=== PATIENT | female | born 1945 | race African-American/Black ===

== ENCOUNTER 2019-05-08 09:06 | Inpatient (IN) | payer OTHER ==
[~2019-05-08] VITALS: Ht 160 cm; Wt 77.1 kg
[2019-05-08] MEDS ORDERED: ALBUTEROL (0.083%) 2.5MG/3ML NEB HHN STA (09:21)
[2019-05-08] MEDS ORDERED: MORPHINE SULFATE 4 MG/ML CPJ (NOT FOR IM USE) IV ONE (10:30)
[2019-05-08] MEDS ORDERED: LEVOFLOXACIN 250MG TABLET PO ONE (10:45)
[2019-05-08 11:06] LABS: HEMOGLOBIN. 11.2 g/dL (12.0-16.0); MEAN CORPUSCULAR HEMOGLOBIN 30.9 pg (28.0-32.0); MEAN CORPUSCULAR VOLUME 88.5 fL (81.0-99.0); PLATELET 200 x1000/uL (130-400); RED BLOOD CELL COUNT 3.62 mill/uL (4.2-5.4); RED CELL DISTRIBUTION WIDTH 14.7 % (11.6-14.6)
[2019-05-08 11:14] LABS: CHLORIDE 103 mEq/L (98-107)
[2019-05-08 11:32] LABS: PLATELET ESTIMATE NORMAL
[2019-05-08] MEDS ORDERED: TRAMADOL 50MG TABLET PO PRN (14:45)
[2019-05-08] MEDS ORDERED: MORPHINE SULFATE 2 MG/ML CPJ (NOT FOR IM USE) IV PRN (14:45)
[2019-05-08] MEDS ORDERED: NITROGLYCERIN 0.4MG TABLET SL SL PRN (14:45)
[2019-05-08] MEDS ORDERED: LORAZEPAM 0.5MG TABLET PO PRN (14:45)
[2019-05-08] MEDS ORDERED: MAGNESIUM/ALUMINUM HYDROXIDE/SIMETHICONE 30ML UDC PO PRN (14:45)
[2019-05-08] MEDS ORDERED: CLONIDINE 0.1MG TABLET PO PRN (14:45)
[2019-05-08] MEDS ORDERED: IPRATROPIUM/ALBUTEROL 0.5-3(2.5)MG/3ML NEB NEB PRN (14:45)
[2019-05-08] MEDS ORDERED: ACETAMINOPHEN 325MG TABLET PO PRN (14:45)
[2019-05-08] MEDS ORDERED: ONDANSETRON HCL 4MG/2ML INJ IV PRN (14:45)
[2019-05-08] MEDS ORDERED: AZITHROMYCIN 500 MG in DEXT 5% WATER 250 ML IV NR (15:15)
[2019-05-08] MEDS: ENOXAPARIN 40MG/0.4ML SYR SUBCUT SCH (15:29)
[2019-05-08] MEDS ORDERED: LISI10TA5 MT (17:55)
[2019-05-08] MEDS ORDERED: HYDR12.529 PO (17:55)
[2019-05-08] MEDS ORDERED: COD1CAPS7 PO (17:55)
[2019-05-08] MEDS ORDERED: MULT-1146 MT (17:55)
[2019-05-08] MEDS ORDERED: VIT1TABL77 PO (17:55)
[2019-05-08] MEDS ORDERED: VIT1TABL86 MT (17:55)
[2019-05-08] MEDS: DILTIAZEM HCL 60MG TABLET PO SCH ×2 (18:00→23:21)
[2019-05-08 18:49] VITALS: BP 110/50
[2019-05-08 20:00] VITALS: BP 104/42
[2019-05-08] MEDS ORDERED: CEFTRIAXONE 1,000 MG in DEXTROSE 5% WATER 50 ML IV SCH (20:00)
[2019-05-08] MEDS: GUAIFENESIN/DM 600MG/30MG ER TAB 12HR PO SCH (21:26)
[2019-05-08] MEDS: ASCORBIC ACID 500 MG TABLET PO SCH (21:27)
[2019-05-08] MEDS: FAMOTIDINE 20MG TABLET PO SCH (21:27)
[2019-05-09] VITALS: BP 104/54
[2019-05-09 00:15] LABS: CREATINE KINASE 99 IU/L (26-192)
[2019-05-09 00:16] LABS: CREATINE KINASE MB FRACTION < 1.0 ng/mL (0.5-3.6)
[2019-05-09 04:07] VITALS: BP 100/45
[2019-05-09] MEDS: GUAIFENESIN/DM 600MG/30MG ER TAB 12HR PO SCH ×2 (05:04→18:06)
[2019-05-09] MEDS: DILTIAZEM HCL 60MG TABLET PO SCH ×3 (05:07→18:05)
[2019-05-09 08:35] VITALS: BP_SYST 134; BP_SYST 139; BP_DIAS 55; BP_DIAS 63
[2019-05-09] MEDS ORDERED: CEFTRIAXONE 1 G PREMIX 50 ML IV SCH (09:00)
[2019-05-09] MEDS ORDERED: DEXTROSE 50% WATER 50ML SYRINGE IV PRN (10:00)
[2019-05-09] MEDS: FAMOTIDINE 20MG TABLET PO SCH ×2 (10:33→23:04)
[2019-05-09] MEDS: ASPIRIN 81MG EC TABLET PO SCH (10:33)
[2019-05-09] MEDS: ZINC SULFATE 220 MG ( 50 ) CAPSULE PO SCH (10:33)
[2019-05-09] MEDS: ASCORBIC ACID 500 MG TABLET PO SCH ×2 (10:33→23:04)
[2019-05-09] MEDS: DOCUSATE SODIUM 100MG CAPSULE PO PRN (10:34)
[2019-05-09 10:51] LABS: CREATINE KINASE 89 IU/L (26-192)
[2019-05-09 10:52] LABS: CREATINE KINASE MB FRACTION < 1.0 ng/mL (0.5-3.6)
[2019-05-09 12:00] VITALS: BP 113/62
[2019-05-09] MEDS ORDERED: BLOOD SUGAR DIAGNOSTIC STRIP TEST SCH (12:40)
[2019-05-09] MEDS ORDERED: INSULIN LISPRO 100 UNITS/ML SUBCUT SCH (12:40)
[2019-05-09 16:00] VITALS: BP 131/49
[2019-05-09] MEDS: IPRATROPIUM/ALBUTEROL 0.5-3(2.5)MG/3ML NEB HHN SCH ×2 (17:22→21:45)
[2019-05-09] MEDS: ENOXAPARIN 40MG/0.4ML SYR SUBCUT SCH (18:01)
[2019-05-09] MEDS: AZITHROMYCIN 500 MG in DEXT 5% WATER 250 ML IV SCH (19:30)
[2019-05-09 20:00] VITALS: BP 100/48
[2019-05-10] VITALS (7 sets, daily range): BP systolic 110–148; BP diastolic 45–58
[2019-05-10] MEDS: IPRATROPIUM/ALBUTEROL 0.5-3(2.5)MG/3ML NEB HHN SCH ×4 (01:33→20:55)
[2019-05-10] MEDS: GUAIFENESIN 200MG/10ML SUGAR FREE UDC PO PRN ×3 (04:43→21:27)
[2019-05-10] MEDS ORDERED: CEFTRIAXONE 1,000 MG in DEXTROSE 5% WATER 50 ML IV SCH (05:00)
[2019-05-10] MEDS: GUAIFENESIN/DM 600MG/30MG ER TAB 12HR PO SCH ×2 (06:50→18:41)
[2019-05-10] MEDS: DILTIAZEM HCL 60MG TABLET PO SCH ×4 (06:51→18:42)
[2019-05-10] MEDS: DOCUSATE SODIUM 100MG CAPSULE PO PRN (10:33)
[2019-05-10] MEDS: ASCORBIC ACID 500 MG TABLET PO SCH ×2 (10:33→21:21)
[2019-05-10] MEDS: ZINC SULFATE 220 MG ( 50 ) CAPSULE PO SCH (10:33)
[2019-05-10] MEDS: FAMOTIDINE 20MG TABLET PO SCH ×2 (10:34→21:21)
[2019-05-10] MEDS: ASPIRIN 81MG EC TABLET PO SCH (10:34)
[2019-05-10] MEDS: AZITHROMYCIN 500 MG in DEXT 5% WATER 250 ML IV SCH (16:38)
[2019-05-10] MEDS: ENOXAPARIN 40MG/0.4ML SYR SUBCUT SCH (16:39)
[2019-05-10] MEDS: ZOLPIDEM TARTRATE 5MG TABLET PO PRN (21:31)
[2019-05-11] VITALS (7 sets, daily range): BP systolic 116–172; BP diastolic 50–77
[2019-05-11] MEDS: IPRATROPIUM/ALBUTEROL 0.5-3(2.5)MG/3ML NEB HHN SCH ×4 (01:42→21:00)
[2019-05-11 06:26] LABS: CHLORIDE 106 mEq/L (98-107)
[2019-05-11 06:29] LABS: BASOPHILS % 0.3 % (0.0-2.0); EOSINOPHILS % 1.1 % (0.0-5.0); HEMATOCRIT. 32.9 % (36.0-48.0); HEMOGLOBIN. 10.9 g/dL (12.0-16.0); LYMPHOCYTES % 16.5 % (20.0-50.0); MEAN CORPUSCULAR HEMOGLOBIN 29.4 pg (28.0-32.0); MEAN CORPUSCULAR VOLUME 88.8 fL (81.0-99.0); MEAN PLATELET VOLUME 9.7 fl (7.4-10.4); MONOCYTES % 5.7 % (2.0-8.0); NEUTROPHILS % 76.4 % (40.0-76.0); PLATELET 193 x1000/uL (130-400); RED CELL DISTRIBUTION WIDTH 14.8 % (11.6-14.6)
[2019-05-11] MEDS: DILTIAZEM HCL 60MG TABLET PO SCH ×3 (06:39→15:12)
[2019-05-11] MEDS: GUAIFENESIN/DM 600MG/30MG ER TAB 12HR PO SCH ×2 (06:39→17:43)
[2019-05-11] MEDS: CEFTRIAXONE 1 G PREMIX 50 ML IV SCH (06:40)
[2019-05-11] MEDS ORDERED: POTASSIUM CHLORIDE 20MEQ TABLET SR PO NR (08:30)
[2019-05-11] MEDS ORDERED: POTASSIUM CHLORIDE INJ 40 MEQ in DEXT 5% WATER 250 ML IV NR (09:30)
[2019-05-11] MEDS: ZINC SULFATE 220 MG ( 50 ) CAPSULE PO SCH (09:47)
[2019-05-11] MEDS: ASCORBIC ACID 500 MG TABLET PO SCH ×2 (09:47→21:47)
[2019-05-11] MEDS: FAMOTIDINE 20MG TABLET PO SCH ×2 (09:47→21:47)
[2019-05-11] MEDS: ASPIRIN 81MG EC TABLET PO SCH (09:47)
[2019-05-11] MEDS: AZITHROMYCIN 500 MG in DEXT 5% WATER 250 ML IV SCH (17:35)
[2019-05-11] MEDS: ENOXAPARIN 40MG/0.4ML SYR SUBCUT SCH (17:43)
[2019-05-11] MEDS: ZOLPIDEM TARTRATE 5MG TABLET PO PRN (21:45)
[2019-05-11] MEDS: GUAIFENESIN 200MG/10ML SUGAR FREE UDC PO PRN (21:54)
[2019-05-12] VITALS: BP 136/76
[2019-05-12] MEDS: DILTIAZEM HCL 60MG TABLET PO SCH ×3 (00:41→05:32)
[2019-05-12] MEDS: IPRATROPIUM/ALBUTEROL 0.5-3(2.5)MG/3ML NEB HHN SCH ×2 (02:10→09:52)
[2019-05-12 04:00] VITALS: BP 137/51
[2019-05-12] MEDS: GUAIFENESIN 200MG/10ML SUGAR FREE UDC PO PRN (04:55)
[2019-05-12 05:32] LABS: CHLORIDE 109 mEq/L (98-107)
[2019-05-12] MEDS: CEFTRIAXONE 1 G PREMIX 50 ML IV SCH (05:47)
[2019-05-12 08:00] VITALS: BP 145/57
[2019-05-12] MEDS: ASCORBIC ACID 500 MG TABLET PO SCH (09:37)
[2019-05-12] MEDS: ASPIRIN 81MG EC TABLET PO SCH (09:37)
[2019-05-12] MEDS: ZINC SULFATE 220 MG ( 50 ) CAPSULE PO SCH (09:37)
[2019-05-12] MEDS: FAMOTIDINE 20MG TABLET PO SCH (09:37)
[2019-05-12 11:44] VITALS: BP 142/57
== END 2019-05-12 13:17 | disposition home or self-care (01) | DRG 871 ==
LOC: ER 09:06 → 7WST 13:51 → SUPCPDRO 14:37 → ENRESERV 15:38
PROVIDERS: ADMIT Internal Medicine; ATTEND Internal Medicine
DX: A41.9 Sepsis, unspecified organism (principal); J96.00 Acute respiratory failure, unspecified whether with hypoxia or hypercapnia; J18.1 Lobar pneumonia, unspecified organism; E44.1 Mild protein-calorie malnutrition; J91.8 Pleural effusion in other conditions classified elsewhere; I10 Essential (primary) hypertension; E78.5 Hyperlipidemia, unspecified; E78.00 Pure hypercholesterolemia, unspecified; E87.6 Hypokalemia; I25.10 Atherosclerotic heart disease of native coronary artery without angina pectoris; Z68.30 Body mass index [BMI] 30.0-30.9, adult; Z79.899 Other long term (current) drug therapy
CPT/HCPCS: 36415; 71045; 71250; 80048; 80061; 82550; 82553; 83036; 83735; 83880; 84484; 93005; 93306; 93970; 94640; 99285; C1893; J0456; J0696; J1650; J2270; J3480; J7040; J7060; J7611; J7620